=== PATIENT | female | born 1995 | race African-American/Black ===

== ENCOUNTER 2021-04-05 00:53 | Emergency (ER) | payer MEDICAID ==
[~2021-04-05] VITALS: Ht 154.9 cm; Wt 67.3 kg
[2021-04-05 01:02] VITALS: TEMP 97.2
[2021-04-05 01:14] LABS: COLLECTION METHOD CLEAN CATCH
[2021-04-05 01:21] VITALS: BP 110/64
[2021-04-05 01:25] LABS: MUCOUS Present /lpf; PH 7 (5-8); URINE APPEARANCE Hazy; URINE BACTERIA None Seen /hpf; URINE BILIRUBIN Negative (NEGATIVE); URINE BLOOD Negative (NEGATIVE); URINE COLOR Yellow; URINE GLUCOSE Negative (NEGATIVE); URINE KETONE Negative (NEGATIVE); URINE LEUKOCYTE ESTERASE Negative (NEGATIVE); URINE NITRATE Negative (NEGATIVE); URINE PROTEIN(semi-quant) Negative (NEGATIVE); URINE UROBILINOGEN >=4.0 mg/dL (NEGATIVE)
[2021-04-05 01:47] LABS: BASO % 0.6 % (0.0-2.0); EOS # 0.3 (0.0-0.7); EOS % 4.5 % (0-4.0); GRAN # 3.3 (1.4-6.5); GRAN % 46.3 % (42.2-75.2); HEMATOCRIT 35.3 % (37.0-47.0); HEMOGLOBIN 11.8 g/dl (12.5-16.0); LYMPH # 2.8 (1.2-3.4); LYMPH % 39.5 % (20.0-51.0); MEAN CELL VOLUME 88 fl (80.0-100.0); MEAN CORPUSCULAR HEMOGLOBIN 29 pg (27.0-31.0); MEAN CORPUSCULAR HGB CONC 33 g/dl (33.0-37.0); MEAN PLATELET VOLUME 9.5 fl (7.4-10.4); MONO # 0.6 (0.1-0.6); MONO % 8.8 % (1.7-9.3); PLATELET COUNT 272 K/mm3 (130-400); RED BLOOD COUNT 4.01 M/mm3 (4.10-5.30); REDCELL DISTRIBUTION WIDTH-CV 11.9 % (11.5-14.5)
[2021-04-05 01:57] LABS: ALANINE AMINOTRANSFERASE 12 U/L (4-34); ALBUMIN 4.1 gm/dL (3.5-5.0); ALKALINE PHOSPHATASE 46 U/L (50-136); ANION GAP 8 mmol/L (7-16); AST,SGOT 20 U/L (15-37); BILIRUBIN,TOTAL < 0.1 mg/dL (0.0-1.0); BLOOD UREA NITROGEN 7 mg/dL (7-17); CARBON DIOXIDE 24 mmol/L (22-30); CHLORIDE 104 mmol/L (98-107); CREATININE, serum 0.51 (0.52-1.25); GLUCOSE 102 mg/dL (74-106); POTASSIUM 3.4 mmol/L (3.4-5.0); SODIUM 136 mmol/L (137-145); TOTAL PROTEIN 7.5 gm/dL (6.4-8.2)
[2021-04-05 02:39] LABS: HCG,QUANTITATIVE 18316 mIU/mL (0-5)
[2021-04-05] MEDS ORDERED: PRENATAL PO (03:05)
[2021-04-05 03:21] VITALS: PULSE 67
== END 2021-04-05 03:22 | disposition home or self-care (01) ==
LOC: COL.ER 00:53
PROVIDERS: Emergency Medicine
DX: O26.891 Other specified pregnancy related conditions, first trimester (principal); R10.30 Lower abdominal pain, unspecified; R42 Dizziness and giddiness; Z3A.00 Weeks of gestation of pregnancy not specified
CPT/HCPCS: J7120

== ENCOUNTER → 2021-04-06 | Outpatient (CLI) | payer SELFPAY ==
[~2021-04-06] MED LIST: AMOXICILLIN 50500 MG PO; PRENATAL PO; REGLAN 10MG10 MG/TAB PO
== END ==
LOC: COL.RAD 08:01
DX: O26.891 Other specified pregnancy related conditions, first trimester (principal); R10.9 Unspecified abdominal pain; Z3A.01 Less than 8 weeks gestation of pregnancy

== ENCOUNTER 2021-04-07 13:35 | Emergency (ER) | payer MEDICAID ==
[~2021-04-07] VITALS: Ht 154.9 cm; Wt 64.5 kg
[~2021-04-07 13:35] MED LIST changes: -AMOXICILLIN 50500 MG PO; -REGLAN 10MG10 MG/TAB PO
[2021-04-07 14:25] VITALS: TEMP 97.1
[2021-04-07 17:34] VITALS: BP 97/58; PULSE 69
== END 2021-04-07 17:42 | disposition home or self-care (01) ==
LOC: COL.ER 13:35
DX: O21.9 Vomiting of pregnancy, unspecified (principal); O99.519 Diseases of the respiratory system complicating pregnancy, unspecified trimester; J06.9 Acute upper respiratory infection, unspecified; Z3A.00 Weeks of gestation of pregnancy not specified; Z20.822 Contact with and (suspected) exposure to COVID-19
CPT/HCPCS: J2550; J7030

== ENCOUNTER 2021-04-13 05:11 | Emergency (ER) | payer MEDICAID ==
[~2021-04-13] VITALS: Ht 154.9 cm; Wt 65.0 kg
[2021-04-13 05:24] VITALS: BP 110/71; TEMP 98
[2021-04-13 06:05] LABS: HEMOGLOBIN 12.2 g/dl (12.5-16.0); MEAN CELL VOLUME 87 fl (80.0-100.0); MEAN CORPUSCULAR HEMOGLOBIN 30 pg (27.0-31.0); MEAN CORPUSCULAR HGB CONC 34 g/dl (33.0-37.0); MEAN PLATELET VOLUME 9.9 fl (7.4-10.4); PLATELET COUNT 276 K/mm3 (130-400); RED BLOOD COUNT 4.14 M/mm3 (4.10-5.30); REDCELL DISTRIBUTION WIDTH-CV 11.7 % (11.5-14.5)
[2021-04-13 06:17] LABS: ALBUMIN 4.4 gm/dL (3.5-5.0); BILIRUBIN,TOTAL 0.5 mg/dL (0.0-1.0); CALCIUM 9.6 mg/dL (8.4-10.2); CREATININE, serum 0.46 (0.52-1.25); POTASSIUM 3.9 mmol/L (3.4-5.0); TOTAL PROTEIN 7.8 gm/dL (6.4-8.2)
[2021-04-13 06:26] LABS: BAND 3 % (0-10); EOSINOPHIL 3 % (0-4); LYMPHOCYTE 32 % (20.0-51.0); NEUTROPHILS 60 % (42.0-75.2); PLATELET ESTIMATE NORMAL (NORMAL)
[2021-04-13] MEDS ORDERED: REGLAN 10MG10 MG/TAB PO (06:58)
[2021-04-13 07:01] LABS: COLLECTION METHOD CLEAN CATCH
[2021-04-13 07:12] LABS: MUCOUS Present /lpf; PH 5 (5-8); URINE APPEARANCE Cloudy; URINE BACTERIA None Seen /hpf; URINE BILIRUBIN Negative (NEGATIVE); URINE BLOOD Negative (NEGATIVE); URINE COLOR Yellow; URINE GLUCOSE Negative (NEGATIVE); URINE KETONE Trace (NEGATIVE); URINE LEUKOCYTE ESTERASE Trace (NEGATIVE); URINE NITRATE Negative (NEGATIVE); URINE PROTEIN(semi-quant) Negative (NEGATIVE); URINE UROBILINOGEN Negative (NEGATIVE)
[2021-04-13 08:03] VITALS: PULSE 70
== END 2021-04-13 08:03 | disposition home or self-care (01) ==
LOC: COL.ER 05:11
PROVIDERS: Emergency Medicine
DX: O26.891 Other specified pregnancy related conditions, first trimester (principal); R10.32 Left lower quadrant pain; Z3A.01 Less than 8 weeks gestation of pregnancy
CPT/HCPCS: J2765; J7030

== ENCOUNTER 2021-05-17 20:42 | Emergency (ER) | payer SELFPAY ==
[~2021-05-17] VITALS: Ht 154.9 cm; Wt 66.4 kg
[~2021-05-17 20:42] MED LIST changes: +REGLAN 10MG10 MG/TAB PO
[2021-05-17 21:30] VITALS: BP 101/60; PULSE 60; TEMP 97.8
== END 2021-05-17 21:37 | disposition home or self-care (01) ==
LOC: COL.ER 20:42
DX: O20.8 Other hemorrhage in early pregnancy (principal); R04.0 Epistaxis; Z3A.11 11 weeks gestation of pregnancy

== ENCOUNTER 2021-06-11 15:51 | Emergency (ER) | payer MEDICAID ==
[~2021-06-11] VITALS: Ht 154.9 cm; Wt 62.7 kg
[2021-06-11 17:04] VITALS: BP 113/69; TEMP 98.5
[2021-06-11] MEDS ORDERED: AMOXICILLIN 50500 MG PO (17:36)
[2021-06-11 18:19] VITALS: PULSE 68
== END 2021-06-11 18:22 | disposition home or self-care (01) ==
LOC: COL.ER 15:51
DX: J01.90 Acute sinusitis, unspecified (principal)

== ENCOUNTER 2021-07-15 10:35 | Emergency (ER) | payer MEDICAID ==
[~2021-07-15] VITALS: Ht 154.9 cm; Wt 67.3 kg
[~2021-07-15 10:35] MED LIST changes: +AMOXICILLIN 50500 MG PO
[2021-07-15 11:43] LABS: BASO % 0.3 % (0.0-2.0); EOS # 0.4 K/mm3 (0.0-0.7); EOS % 4.2 % (0.0-4.0); GRAN # 5.6 K/mm3 (1.4-6.5); GRAN % 65.2 % (42.2-75.2); HEMOGLOBIN 10.7 g/dl (12.5-16.0); LYMPH # 1.9 K/mm3 (1.2-3.4); LYMPH % 21.9 % (20.0-51.0); MEAN CELL VOLUME 90 fl (80.0-100.0); MEAN CORPUSCULAR HEMOGLOBIN 29 pg (27-31); MEAN CORPUSCULAR HGB CONC 33 g/dl (33.0-37.0); MEAN PLATELET VOLUME 9.5 fl (7.4-10.4); MONO # 0.7 K/mm3 (0.1-0.6); MONO % 7.9 % (1.7-9.3); PLATELET COUNT 295 K/mm3 (130-400); RED BLOOD COUNT 3.64 M/mm3 (4.10-5.30); REDCELL DISTRIBUTION WIDTH-CV 12.5 % (11.5-14.5)
[2021-07-15 11:54] LABS: HEMATOCRIT 32.8 % (37.0-47.0)
[2021-07-15 12:11] LABS: ALBUMIN 3.3 gm/dL (3.5-5.0); BILIRUBIN,TOTAL 0.3 mg/dL (0.2-1.2); CALCIUM 9.9 mg/dL (8.4-10.2); CREATININE, serum 0.53 mg/dL (0.57-1.11); POTASSIUM 3.5 mmol/L (3.5-4.5); TOTAL PROTEIN 6.7 gm/dL (6.2-8.1)
[2021-07-15 12:18] LABS: COLLECTION METHOD CLEAN CATCH
[2021-07-15 12:41] LABS: MUCOUS Present (NOT PRESENT); PH 7 (5-8); SQUAMOUS EPITHELIAL 20-50 /hpf (0-10); URINE APPEARANCE Cloudy (CLEAR/HAZY); URINE BACTERIA Rare (NONE SEEN); URINE BILIRUBIN Negative (NEGATIVE); URINE BLOOD 1+ (NEGATIVE); URINE COLOR Yellow (YELLOW); URINE GLUCOSE Negative (NEGATIVE); URINE KETONE Negative (NEGATIVE); URINE LEUKOCYTE ESTERASE Trace (NEGATIVE); URINE NITRATE Negative (NEGATIVE); URINE PROTEIN(semi-quant) Negative (NEGATIVE); URINE RBC 0-2 /hpf (0-2); URINE UROBILINOGEN Negative (NEGATIVE)
[2021-07-15 14:35] VITALS: BP 110/64; PULSE 84; TEMP 97.8
== END 2021-07-15 14:35 | disposition home or self-care (01) ==
LOC: COL.ER 10:35 → LDRO 10:35 → EDSTATUS 10:47 → COL.ER 14:35
PROVIDERS: Nurse Practitioner Primary Care
DX: O26.892 Other specified pregnancy related conditions, second trimester (principal); R10.2 Pelvic and perineal pain; Z3A.19 19 weeks gestation of pregnancy

== ENCOUNTER → 2021-08-27 | Outpatient (CLI) | payer MEDICAID | LOC: COL.CARD 10:54 | DX: R42 Dizziness and giddiness (principal) ==

== ENCOUNTER 2021-11-25 02:40 | Inpatient (IN) | payer MEDICAID ==
[~2021-11-25] VITALS: Ht 154.9 cm; Wt 80.5 kg
[2021-11-25] VITALS (36 sets, daily range): BP systolic 96–144; BP diastolic 54–95; PULSE 59–89; TEMP 97.5–98.5
--- NOTE | 2021-11-25 02:55 | NUR ---
0255- PATIENT AND SPOUSE TO UNIT. ORIENTATED TO ROOM AND CHANGED INTO CLEAN GOWN. PATIENT REPORTS GFM, SROM AT 0200 AT HOME, SOME CRAMPING AND SOME SPOTTING AT HOME. PATIENT OF DR. ROMERO WHO IS A AT 39.0. 0257- EFM AND TOCO ON AND TRACING. VITALS TAKEN, ASSESSMENT COMPLETED. PLAN OF CARE DISCUSSED. 0304- SVE /2 WITH POSITIVE AMNIOTRACE. PATIENT DENIES FURTHER QUESTIONS OR NEEDS AT THIS TIME. CALL LIGHT WITHIN REACH.
[2021-11-25] MEDS ORDERED: PRENATAL TABLET PO (03:28)
[2021-11-25 04:01] LABS: BASO % 0.3 % (0.0-2.0); EOS # 0.2 K/mm3 (0.0-0.7); GRAN # 3.1 K/mm3 (1.4-6.5); GRAN % 51.7 % (42.2-75.2); HEMOGLOBIN 11.2 g/dl (12.5-16.0); LYMPH # 2.1 K/mm3 (1.2-3.4); LYMPH % 34.2 % (20.0-51.0); MEAN CELL VOLUME 87 fl (80.0-100.0); MEAN CORPUSCULAR HEMOGLOBIN 28 pg (27-31); MEAN CORPUSCULAR HGB CONC 33 g/dl (33.0-37.0); MEAN PLATELET VOLUME 10.6 fl (7.4-10.4); MONO # 0.6 K/mm3 (0.1-0.6); MONO % 9.6 % (1.7-9.3); PLATELET COUNT 305 K/mm3 (130-400); RED BLOOD COUNT 3.94 M/mm3 (4.10-5.30); REDCELL DISTRIBUTION WIDTH-CV 14.2 % (11.5-14.5)
[2021-11-25 04:02] LABS: HEMATOCRIT 34.4 % (37.0-47.0)
--- NOTE | 2021-11-25 08:55 | NUR ---
0301-99[address] dr logan on unit reviewing R strip. 0845 SVE /2. Dr. Logan orders pitocin to be started per protocol.
--- NOTE | 2021-11-25 12:00 | NUR ---
1000 This RN at bedside. Late decelerations noted. Positions changed. Lr increased. Pitocin off. Oxygen mask at 8L. late decelerations continue 1010 Dr. Franco called and notified. Discuss section with patient due to FHR and Dr. Franco's assessment. 1025 Joan here. Discusses section with pt. pt verbalizes understanding. Preparing to go back to OR.
[2021-11-26 01:30] VITALS: BP 128/86; PULSE 82; TEMP 98.2
[2021-11-26 04:00] VITALS: BP 121/71; PULSE 75; TEMP 98.6
[2021-11-26 06:19] LABS: HEMATOCRIT 28.6 % (37.0-47.0); HEMOGLOBIN 9.2 g/dl (12.5-16.0)
[2021-11-26 07:45] VITALS: BP 115/61; PULSE 71; TEMP 97.8
[2021-11-26] MEDS ORDERED: IBU600 MG PO (08:13)
[2021-11-26] MEDS ORDERED: PERCOCET 325 MG1 TA2 PO (08:13)
--- NOTE | 2021-11-26 09:51 | NUR ---
Initial visit; Parents thanked [facility] for offering congratulations and God's blessings for the of their daughter. [facility] thanked family for choosing [facility].
[2021-11-26 12:00] VITALS: BP 108/62; PULSE 73; TEMP 97.9
[2021-11-26 16:15] VITALS: BP 108/66; PULSE 76; TEMP 97.6
[2021-11-26 20:35] VITALS: BP 127/65; PULSE 76; TEMP 97.9
[2021-11-27 08:05] VITALS: BP 113/55; PULSE 68; TEMP 98.1
--- NOTE | 2021-11-27 17:20 | NUR ---
1200DISCHARGE INSTRUCTIONS REVIEWED WITH PATIENT. PATIENT VERBALIZED UNDERSTANDING. WILL NOTIFY NURSING STAFF WHEN READY TO LEAVE. 1235ALL PERSONAL BELONGINGS GATHERED FROM PATIENT ROOM. PATIENT LEFT AMBULATORY AND IN NO APPARENT DISTRESS. PATIENT ACCOMPANIED BY SPOUSE AND THIS RN.
== END 2021-11-27 12:35 | disposition home or self-care (01) | DRG 788 ==
LOC: LDRO 02:40 → OB 03:15 → LDR 03:15 → OB 14:02
PROVIDERS: Obstetrics & Gynecology; ADMIT Obstetrics & Gynecology
PROC: 10D00Z1 Extraction of Products of Conception, Low, Open Approach (ICD-10-PCS; principal; 2021-11-25)
DX: O76 Abnormality in fetal heart rate and rhythm complicating labor and delivery (principal); O90.81 Anemia of the puerperium; D64.9 Anemia, unspecified; Z3A.39 39 weeks gestation of pregnancy; Z37.0 Single live birth
CPT/HCPCS: J0690; J1885; J2400; J2405; J2590; J3010; J7120